=== PATIENT | female | born 1975 | race Caucasian/White ===

== ENCOUNTER 2017-09-10 13:55 | Day surgery (SDC) | payer OTHER ==
[~2017-09-10] VITALS: Ht 154.9 cm; Wt 80.5 kg
[2017-09-10 14:27] VITALS: Ht 154.9 cm; Wt 80.5 kg
[2017-09-10] MEDS ORDERED: VITAMINS (14:35)
[2017-09-10] MEDS ORDERED: SENNA (14:35)
--- NOTE | 2017-09-10 15:17 | OPPN ---
Date/Time of Note Date/Time of Note DATE: 09/10/17 TIME: 15:11 Operative Report Preoperative Diagnosis SCREENING Postoperative Diagnosis Multiple polyps in the colon 4 mm polyp at hepatic flexure 3 mm polyp at splenic flexure At 30 cm 2 mm polyp At 20 cm 4 polyps removed including one polyp it was 5 mm biopsy also done using cold snare technique The ranged from 2 mm to 5 mm Operation/Procedure Performed Colonoscopy multiple polyps removed by biopsy and also by cold snare technique see dictation for detail Surgeon see signature line stonecutter assistant None Anesthesia: moderate sedation (Versed 2 mg/fentanyl 50 mcg) Estimated blood loss: none Transfusion Required none Specimen Multiple polyps sent at different levels in different jars See nursing note Grafts/Implants none Complications none CHRISTOS DOE MD Sep 10, 2017 15:16
[2017-09-10 15:20] VITALS: BP 150/82; PULSE 69; RESP 12
--- NOTE | 2017-09-10 16:15 | OPPN ---
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
[2017-09-10] MEDS ORDERED: MIDAZOLAM 1 MG/ML 2 ML INJ ONE ×2 (16:21)
[2017-09-10] MEDS ORDERED: FENTAnyl 50 MCG/ML VIAL ONE (16:21)
[2017-09-10 16:36] VITALS: PULSE 77; RESP 14
--- NOTE | 2017-09-11 11:33 | GILP ---
DATE OF PROCEDURE: 09/10/2017 PREOPERATIVE DIAGNOSIS: Iron deficiency anemia. PROCEDURE DONE: EGD, biopsy and BICAP coagulation of angioectasia in the antrum. POSTOPERATIVE DIAGNOSES: Watermelon stomach, angioectasia in the antrum. DESCRIPTION OF PROCEDURE: The patient was put in left lateral decubitus after obtaining informed co nsent, was sedated, monitored on oximetry, EKG, blood pressure, totally she received 3 mg IV Versed, 75 mcg of fentanyl. Total duration of moderate sedation was 12 minutes. Then I advanced an Olympu s video upper endoscope into the esophagus, stomach and duodenum. Esophagus was unremarkable except small hiatus hernia and examination of stomach showed the antrum watermelon stomach. This was phot ographed. Angioectasia suspected. It bleeds easily upon biopsy and using a BICAP coagulation, I co agulated 4 strips of this angioectasia in the antrum. At the conclusion upon washing, there was no active bleeding. Duodenal bulb and first and second part unremarkable. The rest of the stomach was mild gastritis. Upon removal of scope, patient had no complication. Plan will be to continue PPI like Nexium 40 mg per day. Today and tomorrow she will be on antacid p .o. She will return for colonoscopy. At the same time will repeat the endoscopy to see how well th is angioectasia is resolving. This may be one of the sources of her GI bleed. We will also conside r complete workup with colonoscopy, if necessary capsule enteroscopy for her iron deficiency anemia. The patient was sent to recovery in fairly good condition and prescriptions were given. Dictated By: CHRISTOS PARDO Conf#: [id number] DID#: [id number] CC: SUNITHA MATTHEWS MD; CHRISTOS DOE M.D.;*EndCC*
== END 2017-09-10 17:07 | disposition home or self-care (01) ==
LOC: GIL 13:55
PROVIDERS: ATTEND Internal Medicine
DX: Z12.11 Encounter for screening for malignant neoplasm of colon (principal); D50.9 Iron deficiency anemia, unspecified; K31.819 Angiodysplasia of stomach and duodenum without bleeding; K44.9 Diaphragmatic hernia without obstruction or gangrene; K29.70 Gastritis, unspecified, without bleeding; K63.5 Polyp of colon
CPT/HCPCS: 43255; 45380; 45385; 84703; 88305; 88312; J2250; J3010; Z7610

== ENCOUNTER 2017-09-21 11:27 | Day surgery (SDC) | payer OTHER ==
[~2017-09-21] VITALS: Ht 154.9 cm; Wt 80.0 kg
[~2017-09-21 11:27] MED LIST: SENNA; VITAMINS
[2017-09-21 12:39] VITALS: Ht 154.9 cm; Wt 80.0 kg
[2017-09-21] MEDS ORDERED: IRON PO (12:47)
[2017-09-21 12:52] VITALS: BP 118/69; RESP 12
[2017-09-21] MEDS ORDERED: FENTAnyl 50 MCG/ML VIAL ONE (13:46)
[2017-09-21] MEDS ORDERED: MEPERIDINE 50 MG INJ ONE (13:46)
[2017-09-21] MEDS ORDERED: MIDAZOLAM 1 MG/ML 2 ML INJ ONE ×2 (13:46)
--- NOTE | 2017-09-21 13:46 | OPPN ---
Date/Time of Note Date/Time of Note DATE: 09/21/17 TIME: 13:44 Operative Report Preoperative Diagnosis Iron deficiency anemia Postoperative Diagnosis Fixed left colon otherwise normal colonoscopy Operation/Procedure Performed Colonoscopy Surgeon see signature line assistant speech language pathologist None Anesthesia: moderate sedation (Versed 3/internal 75 mcg/Demerol 25 mg/total time for moderate sedation 20 minutes) Estimated blood loss: none Transfusion Required none Specimen None Grafts/Implants none Complications none CHRISTOS DOE MD Sep 21, 2017 13:46
--- NOTE | 2017-09-21 13:46 | OPPN ---
Date/Time of Note Date/Time of Note DATE: 09/21/17 TIME: 13:44 Operative Report Preoperative Diagnosis Iron deficiency anemia Postoperative Diagnosis Fixed left colon otherwise normal colonoscopy Operation/Procedure Performed Colonoscopy Surgeon see signature line medical assistant dermatology None Anesthesia: moderate sedation (Versed 3/internal 75 mcg/Demerol 25 mg/total time for moderate sedation 20 minutes) Estimated blood loss: none Transfusion Required none Specimen None Grafts/Implants none Complications none CHRISTOS DOE MD Sep 21, 2017 13:46
--- NOTE | 2017-09-21 13:46 | OPPN ---
Date/Time of Note Date/Time of Note DATE: 09/21/17 TIME: 13:44 Operative Report Preoperative Diagnosis Iron deficiency anemia Postoperative Diagnosis Fixed left colon otherwise normal colonoscopy Operation/Procedure Performed Colonoscopy Surgeon see signature line accounts payable assistant None Anesthesia: moderate sedation (Versed 3/internal 75 mcg/Demerol 25 mg/total time for moderate sedation 20 minutes) Estimated blood loss: none Transfusion Required none Specimen None Grafts/Implants none Complications none CHRISTOS DOE MD Sep 21, 2017 13:46
[2017-09-21 14:12] VITALS: BP 118/69; PULSE 87; RESP 12
[2017-09-21 14:22] VITALS: BP 107/69; RESP 18
--- NOTE | 2017-09-22 06:46 | GILP ---
DATE OF PROCEDURE: PREOPERATIVE DIAGNOSIS: Iron deficiency anemia. PROCEDURE DONE: Colonoscopy up to cecum. POSTOPERATIVE DIAGNOSIS: Fixed sigmoid and rectosigmoid area, otherwise normal colonoscopy. DESCRIPTION OF PROCEDURE: The patient was put in left lateral decubitus after obtaining informed co nsent. She was sedated with 3 mg IV Versed, fentanyl 75 mcg, Demerol 25 mg and total moderate sedat ion time 20 minutes. Rectal exam done. Advanced an Olympus video pediatric colonoscope to cecum. Very gently carefully, rectosigmoid was fixed in the pelvis and sigmoid colon was fixed. Otherwise, colon was normal from cecum to the rectum. Recommendation may be CT scan of the abdomen to rule ou t any extrinsic pressure. Recommend follow up with the primary MD and continue iron therapy. Repea t stool for occult blood. If she continues to have positive blood, consider capsule enteroscopy. Dictated By: CHRISTOS YUN/CINDY Conf#: [id number] DID#: [id number] CC: SUNITHA MATTHEWS MD;*EndCC*
== END 2017-09-21 21:06 | disposition home or self-care (01) ==
LOC: GIL 11:27
PROVIDERS: ATTEND Internal Medicine
DX: D50.9 Iron deficiency anemia, unspecified (principal)
CPT/HCPCS: 45378; 80053; 84703; J2175; J2250; J3010; Z7610

== ENCOUNTER 2018-01-18 11:05 | Day surgery (SDC) | END 2018-01-18 14:41 | disposition home or self-care (01) ==